=== PATIENT | female | born 1960 | race Caucasian/White ===

== ENCOUNTER 2018-11-04 11:26 | Emergency (ER) | payer OTHER, BC | END 2018-11-04 13:19 | disposition home or self-care (01) | LOC: FER 11:26 ==

== ENCOUNTER 2020-06-10 13:05 | Emergency (ER) | payer OTHER, BC | END 2020-06-10 13:23 | disposition home or self-care (01) | LOC: JVIRT 13:05 | DX: Z20.822 Contact with and (suspected) exposure to COVID-19 (principal) | CPT/HCPCS: C9803; G2012-GT; U0003 ==

== ENCOUNTER 2020-06-14 18:51 | Emergency (ER) | payer OTHER, BC ==
[2020-06-14 19:03] VITALS: BP 100/63; PULSE 105; TEMP 99.7; BMI 33.8
== END 2020-06-14 19:31 | disposition home or self-care (01) ==
LOC: FER 18:51
DX: S01.01XA Laceration without foreign body of scalp, initial encounter (principal)
CPT/HCPCS: 99283-25

== ENCOUNTER 2021-05-23 04:17 | Day surgery (SDC) | payer OTHER, BC ==
[2021-05-21 11:07] VITALS: BMI 30.2
[~2021-05-23 04:17] MED LIST: BUPIVACAINE HCL/PF 0.5% (5MG/ML) 10 ML VIAL IJ ONE; LIDOCAINE 1%/EPI 1:100000 (20 ML MULTI DOSE VIAL) IJ ONE
[2021-05-23] MEDS ORDERED: LIDOCAINE 1%/EPI 1:100000 (20 ML MULTI DOSE VIAL) ONE (07:59)
[2021-05-23] MEDS ORDERED: BUPIVACAINE HCL/PF 0.5% (5MG/ML) 10 ML VIAL ONE (07:59)
[2021-05-23] MEDS ORDERED: SODIUM CHLORIDE 0.9% P/F 10 ML VIAL IJ ONE (08:00)
[2021-05-23] MEDS ORDERED: PROPOFOL 20 ML ONE ×2 (09:06)
[2021-05-23] MEDS ORDERED: MIDAZOLAM HCL 2 MG/2 ML SINGLE DOSE VIAL ONE (09:07)
[2021-05-23] MEDS ORDERED: ceFAZolin SODIUM 1 GM VIAL IVPB ONE (09:38)
[2021-05-23] MEDS ORDERED: LIDOCAINE 1%/EPI 1:100000 (20 ML MULTI DOSE VIAL) IJ ONE (09:47)
[2021-05-23] MEDS ORDERED: ONDANSETRON 4 MG/2 ML VIAL IVPUSH PRN (09:48)
[2021-05-23] MEDS ORDERED: oxyCODONE HCL 5 MG TABLET PO PRN ×2 (09:48)
[2021-05-23] MEDS ORDERED: LACTATED RINGERS SOLUTION 1,000 ML IV SCH (10:00)
[2021-05-23] MEDS ORDERED: BUPIVACAINE HCL/PF 0.5% (5MG/ML) 10 ML VIAL IJ ONE (10:05)
[2021-05-23] MEDS ORDERED: oxyCODONE HCL 5 MG TABLET ONE (11:14)
[2021-05-23 11:22] VITALS: TEMP 98.7
[2021-05-23 12:45] VITALS: BP 104/51; PULSE 76
== END 2021-05-23 13:00 | disposition home or self-care (01) ==
LOC: JASU-SURG 04:17
PROVIDERS: ATTEND Orthopaedic Surgery
PROC: 0SBC4ZZ Excision of Right Knee Joint, Percutaneous Endoscopic Approach (ICD-10-PCS; 2021-05-23)
PROC: 0SBC4ZZ Excision of Right Knee Joint, Percutaneous Endoscopic Approach (ICD-10-PCS; principal; 2021-05-23 08:30)
DX: M23.8X1 Other internal derangements of right knee (principal); S83.281A Other tear of lateral meniscus, current injury, right knee, initial encounter; S83.241A Other tear of medial meniscus, current injury, right knee, initial encounter; X58.XXXA Exposure to other specified factors, initial encounter; Y93.9 Activity, unspecified; Y92.9 Unspecified place or not applicable; Y99.9 Unspecified external cause status
CPT/HCPCS: 82962; 94760

== ENCOUNTER 2024-03-16 16:03 | Emergency (ER) | payer OTHER, BC ==
[2024-03-16 16:14] VITALS: BP 129/77; PULSE 100; RESP 18; TEMP 98.6; BMI 27.3
[2024-03-16 17:10] LABS: INR 0.91 (0.83-1.09); PROTHROMBIN TIME (PATIENT) 10.4 SEC (9.7-13.0)
[2024-03-16 17:11] LABS: HEMATOCRIT 38.9 % (32.4-45.2); HEMOGLOBIN 12.5 G/dL (10.7-15.3); MCH 28.4 pg (25.7-33.7); MCHC 32.1 g/dl (32.0-36.0); MEAN CELL VOLUME 88.4 fl (80-96); MEAN PLT VOLUME 6.8 fl (7.5-11.1); RDW 14.5 % (11.6-15.6); WHITE BLOOD COUNT 6.5 10^3/uL (4.0-10.8)
[2024-03-16 17:20] LABS: ALBUMIN 3.9 g/dl (3.4-5.0); BILIRUBIN,TOTAL 0.2 mg/dl (0.2-1); CALCIUM 9.1 mg/dl (8.5-10.1); CREATININE 0.9 mg/dl (0.6-1.3); POTASSIUM 4.3 mmol/L (3.5-5.1); TOT PROT 6.3 g/dl (6.4-8.2)
[2024-03-16 17:24] LABS: PLATELET ESTIMATE ADEQUATE
[2024-03-16] MEDS ORDERED: KETOROLAC TROMETHAMINE 15 MG/ML VIAL ONE (17:42)
[2024-03-16] MEDS: KETOROLAC TROMETHAMINE 30 MG/1 ML VIAL IVPUSH ONE (17:58)
== END 2024-03-16 18:57 | disposition home or self-care (01) ==
LOC: FER 16:03
PROC: 3E0333Z Introduction of Anti-inflammatory into Peripheral Vein, Percutaneous Approach (ICD-10-PCS; principal; 2024-03-16)
DX: R07.81 Pleurodynia (principal); E87.1 Hypo-osmolality and hyponatremia; R05.9 Cough, unspecified; R06.7 Sneezing
CPT/HCPCS: 36415; 71045-TC-FY; 80053; 83735; 84484; 85027; 85610; 85730; 86850; 86900; 86901; 93005; 99285-25